=== PATIENT | male | born 1950 | race Two or more races ===

== ENCOUNTER 2021-01-27 16:26 | Emergency (ER) | payer MEDICARE, OTHER ==
[~2021-01-27] VITALS: Ht 180.3 cm; Wt 95.3 kg
[2021-01-27 16:56] VITALS: BP 175/80
[2021-01-27] MEDS ORDERED: IBUPROFEN 800 MG TAB PO ONE (18:00)
== END 2021-01-27 18:26 | disposition home or self-care (01) ==
LOC: ER 16:26
DX: S16.1XXA Strain of muscle, fascia and tendon at neck level, initial encounter (principal); E11.9 Type 2 diabetes mellitus without complications; I10 Essential (primary) hypertension; V49.9XXA Car occupant (driver) (passenger) injured in unspecified traffic accident, initial encounter; Y93.89 Activity, other specified; Y92.89 Other specified places as the place of occurrence of the external cause; Y99.8 Other external cause status
CPT/HCPCS: 70450; 71046; 72125

== ENCOUNTER 2022-08-07 10:08 | Emergency (ER) | payer OTHER ==
[~2022-08-07] VITALS: Ht 177.8 cm; Wt 77.2 kg
[2022-08-07 11:07] LABS: Basophils # (auto) 0 10 ^3/uL (0-0.2); Basophils % (auto) 0.9 % (0.0-2.0); Eosinophils # (auto) 0.1 10 ^3/uL (0-0.8); Eosinophils % (auto) 2.7 % (0.0-7.0); Hematocrit 40.9 % (41.0-53.0); Hemoglobin 13.8 g/dL (13.5-17.5); Lymphocytes # (auto) 0.6 10 ^3/uL (0.4-5.4); Lymphocytes % (auto) 15.9 % (10.0-50.0); Mean Corpuscular Hemoglobin 30.8 pg (28.0-32.0); Mean Corpuscular Hgb Conc. 33.7 g/dL (32.0-36.0); Mean Corpuscular Volume 91.2 fL (80.0-100.0); Monocytes # (auto) 0.2 10 ^3/uL (0-1.3); Monocytes % (auto) 6.2 % (0.0-12.0); Neutrophils # (auto) 2.9 10 ^3/uL (1.6-8.6); Neutrophils % (auto) 74.3 % (37.0-80.0); Nucleated Red Blood Cells % 0.1 %; Red Blood Cells 4.48 10^6/uL (4.5-5.90); Red Cell Distribution Width 12.9 % (11.8-14.3)
[2022-08-07 11:18] LABS: Potassium 3.7 mmol/L (3.5-5.1)
[2022-08-07 12:10] LABS: Albumin 3.8 g/dL (3.4-5.0); BUN/Creatinine Ratio 22.7; Bilirubin, Total 0.6 mg/dL (0.2-1.0); Calcium 8.7 mg/dL (8.5-10.1); Total Protein 7.7 g/dL (6.4-8.2)
[2022-08-07] MEDS ORDERED: InsuLIN REG 1unit/0.01ml Soln (100units/ml) SC ONE (12:30)
[2022-08-07] MEDS ORDERED: cloNIDine HCL 0.1 MG TAB PO ONE (12:30)
[2022-08-07 14:15] VITALS: BP 145/91
== END 2022-08-07 14:19 | disposition home or self-care (01) ==
LOC: ER 10:08
DX: I10 Essential (primary) hypertension (principal); E11.65 Type 2 diabetes mellitus with hyperglycemia
CPT/HCPCS: 36415; 71045; 80053; 82962; 84484; 85025; 93005

== ENCOUNTER 2023-01-16 01:57 | Emergency (ER) | payer OTHER ==
[~2023-01-16] VITALS: Ht 177.8 cm; Wt 75.0 kg
[2023-01-16 10:00] LABS: Urine Bacteria NONE SEEN /hpf (None Seen); Urine Blood 3+ /uL (Negative); Urine Specific Gravity 1.015 (1.001-1.035); Urine WBC 343 /hpf (0 - 3); Urine WBC Clumps PRESENT /hpf (None Seen)
[2023-01-16 10:05] LABS: Urine Hyaline Cast NONE SEEN /lpf (0 - 2)
[2023-01-16] MEDS ORDERED: cefTRIAXone 1GM/50ML D5W 50 ML IV ONE (10:45)
[2023-01-16] MEDS ORDERED: BACDST PO (10:46)
[2023-01-16 11:44] VITALS: BP 150/71
== END 2023-01-16 11:55 | disposition home or self-care (01) ==
LOC: EDBD 01:57 → ER 01:57
DX: T83.038A Leakage of other urinary catheter, initial encounter (principal); N40.0 Benign prostatic hyperplasia without lower urinary tract symptoms; N39.0 Urinary tract infection, site not specified; Z20.822 Contact with and (suspected) exposure to COVID-19
CPT/HCPCS: 36415; 81001; 87426; 96365; 99285; J0696

== ENCOUNTER 2023-01-19 13:29 | Inpatient (IN) | payer OTHER ==
[~2023-01-19] VITALS: Ht 177.8 cm; Wt 70.0 kg
[~2023-01-19 13:29] MED LIST: BACDST PO
[2023-01-19 15:53] LABS: Basophils # (auto) 0 10 ^3/uL (0-0.2); Eosinophils # (auto) 0.1 10 ^3/uL (0-0.8); Lymphocytes # (auto) 0.5 10 ^3/uL (0.4-5.4); Monocytes # (auto) 0.4 10 ^3/uL (0-1.3); Red Cell Distribution Width 13.6 % (11.8-14.3)
[2023-01-19 15:55] LABS: Basophils % (auto) 0.6 % (0.0-2.0); Eosinophils % (auto) 1.7 % (0.0-7.0); Hematocrit 19.5 % (41.0-53.0); Lymphocytes % (auto) 6.4 % (10.0-50.0); Mean Corpuscular Hemoglobin 32.3 pg (28.0-32.0); Mean Corpuscular Hgb Conc. 35.4 g/dL (32.0-36.0); Mean Corpuscular Volume 91.2 fL (80.0-100.0); Monocytes % (auto) 5.3 % (0.0-12.0); Neutrophils # (auto) 6.1 10 ^3/uL (1.6-8.6); Red Blood Cells 2.14 10^6/uL (4.5-5.90); White Blood Cell 7.1 10^3/uL (4.4-10.8)
[2023-01-19 16:02] LABS: Hemoglobin 6.9 g/dL (13.5-17.5)
[2023-01-19 16:11] LABS: Albumin 3.4 g/dL (3.4-5.0); Calcium 8.4 mg/dL (8.5-10.1); Potassium 4.9 mmol/L (3.5-5.1)
[2023-01-19 16:15] LABS: BUN/Creatinine Ratio 16.1; Bilirubin, Total 0.2 mg/dL (0.2-1.0); Total Protein 6.6 g/dL (6.4-8.2)
[2023-01-19 17:56] LABS: INR 0.99 (0.9-1.15)
[2023-01-19] MEDS ORDERED: ONDANSETRON HCL 4 MG/2 ML VIAL IV PRN (21:30)
[2023-01-19] MEDS ORDERED: DEXTROSE (50%) 50ML SYRG IV PRN (21:30)
[2023-01-19] MEDS: ACCU-CHEK COMFORT CURVE STRIP VI SCH (22:27)
[2023-01-19] MEDS: InsuLIN REG 1unit/0.01ml Soln (100units/ml) SC SCH (22:28)
[2023-01-19] MEDS: TEMAZEPAM 15 MG CAP PO PRN (22:29)
[2023-01-19] MEDS: ACETAMINOPHEN 325 MG TAB PO PRN (22:29)
[2023-01-19 22:35] VITALS: BP 116/35
[2023-01-19 22:49] VITALS: BP 120/37
[2023-01-19 23:15] VITALS: BP 119/46
[2023-01-19 23:39] VITALS: BP 121/40
[2023-01-20] VITALS (10 sets, daily range): BP systolic 111–127; BP diastolic 45–64
[2023-01-20] MEDS: ACCU-CHEK COMFORT CURVE STRIP VI SCH ×4 (07:07→22:03)
[2023-01-20] MEDS: InsuLIN REG 1unit/0.01ml Soln (100units/ml) SC SCH ×4 (07:07→22:02)
[2023-01-20] MEDS ORDERED: SOD CHL 0.45% 1,000 ML IV SCH (07:15)
[2023-01-20 09:41] LABS: Basophils # (auto) 0 10 ^3/uL (0-0.2); Basophils % (auto) 0.5 % (0.0-2.0); Eosinophils # (auto) 0.2 10 ^3/uL (0-0.8); Eosinophils % (auto) 3.2 % (0.0-7.0); Hematocrit 28.3 % (41.0-53.0); Hemoglobin 9.9 g/dL (13.5-17.5); Lymphocytes # (auto) 0.7 10 ^3/uL (0.4-5.4); Lymphocytes % (auto) 9.1 % (10.0-50.0); Mean Corpuscular Hemoglobin 31.3 pg (28.0-32.0); Mean Corpuscular Volume 89.5 fL (80.0-100.0); Monocytes # (auto) 0.5 10 ^3/uL (0-1.3); Monocytes % (auto) 7.3 % (0.0-12.0); Neutrophils # (auto) 5.9 10 ^3/uL (1.6-8.6); Neutrophils % (auto) 79.9 % (37.0-80.0); Red Blood Cells 3.16 10^6/uL (4.5-5.90); White Blood Cell 7.4 10^3/uL (4.4-10.8)
[2023-01-20 09:56] LABS: Albumin 3.7 g/dL (3.4-5.0); Calcium 9.1 mg/dL (8.5-10.1); Potassium 4.4 mmol/L (3.5-5.1)
[2023-01-20 10:00] LABS: Bilirubin, Total 0.3 mg/dL (0.2-1.0); Phosphorus 3.9 mg/dL (2.5-4.90); Total Protein 7.8 g/dL (6.4-8.2)
[2023-01-20] MEDS: PANTOPRAZOLE 40 MG TAB PO SCH (11:01)
[2023-01-20] MEDS ORDERED: cefTRIAXone 1GM/50ML D5W 50 ML IV ONE (11:30)
[2023-01-20] MEDS: SODIUM CHLORIDE 0.9% 1,000 ML IV SCH ×2 (11:57→18:10)
[2023-01-20] MEDS: ACETAMINOPHEN 325 MG TAB PO PRN (22:01)
[2023-01-20] MEDS: TEMAZEPAM 15 MG CAP PO PRN (22:01)
[2023-01-21] MEDS: SODIUM CHLORIDE 0.9% 1,000 ML IV SCH ×3 (00:50→14:30)
[2023-01-21] MEDS ORDERED: METF-370 PO (01:24)
[2023-01-21] MEDS ORDERED: GLIP10TA9 PO (01:24)
[2023-01-21] MEDS ORDERED: EMPA1TAB3 PO (01:24)
[2023-01-21] MEDS ORDERED: PRAV20TA3 PO (01:24)
[2023-01-21] MEDS ORDERED: ATEN-60 PO (01:24)
[2023-01-21] MEDS ORDERED: CLON0.1T PO (01:29)
[2023-01-21] MEDS ORDERED: TERA5CAP2 PO (01:29)
[2023-01-21] MEDS ORDERED: HYDR25TA4 PO (01:29)
[2023-01-21] MEDS ORDERED: LOSA-39 PO (01:29)
[2023-01-21] MEDS ORDERED: SENN1TAB14 PO (01:31)
[2023-01-21] MEDS ORDERED: MAGN84TA4 PO (01:31)
[2023-01-21] MEDS ORDERED: MULT-1058 PO (01:31)
[2023-01-21] MEDS ORDERED: ASPI-378 PO (01:31)
[2023-01-21] MEDS ORDERED: CHOL50004 PO (01:33)
[2023-01-21] MEDS ORDERED: MILK1000 PO (01:33)
[2023-01-21] MEDS ORDERED: FINA5TAB4 PO (01:33)
[2023-01-21] MEDS ORDERED: AMLO-489 PO (01:33)
[2023-01-21] MEDS ORDERED: OMEG100078 PO (01:33)
[2023-01-21 04:39] VITALS: BP 131/86
[2023-01-21 06:09] LABS: Basophils # (auto) 0.1 10 ^3/uL (0-0.2); Basophils % (auto) 0.8 % (0.0-2.0); Eosinophils # (auto) 0.4 10 ^3/uL (0-0.8); Eosinophils % (auto) 5.9 % (0.0-7.0); Hematocrit 25.8 % (41.0-53.0); Lymphocytes # (auto) 0.9 10 ^3/uL (0.4-5.4); Lymphocytes % (auto) 13.2 % (10.0-50.0); Mean Corpuscular Hemoglobin 31.4 pg (28.0-32.0); Mean Corpuscular Hgb Conc. 34.9 g/dL (32.0-36.0); Mean Corpuscular Volume 89.9 fL (80.0-100.0); Monocytes # (auto) 0.6 10 ^3/uL (0-1.3); Monocytes % (auto) 8.7 % (0.0-12.0); Neutrophils # (auto) 4.9 10 ^3/uL (1.6-8.6); Neutrophils % (auto) 71.4 % (37.0-80.0); Red Blood Cells 2.87 10^6/uL (4.5-5.90); Red Cell Distribution Width 14.7 % (11.8-14.3); White Blood Cell 6.9 10^3/uL (4.4-10.8)
[2023-01-21] MEDS: ACCU-CHEK COMFORT CURVE STRIP VI SCH ×4 (06:29→21:37)
[2023-01-21] MEDS: InsuLIN REG 1unit/0.01ml Soln (100units/ml) SC SCH ×4 (06:30→21:48)
[2023-01-21 06:34] LABS: BUN/Creatinine Ratio 17.6; Calcium 8.7 mg/dL (8.5-10.1)
[2023-01-21 09:00] VITALS: BP 130/60
[2023-01-21] MEDS: cefTRIAXone 1GM/50ML D5W 50 ML IV SCH (09:00)
[2023-01-21] MEDS: PANTOPRAZOLE 40 MG TAB PO SCH (10:00)
[2023-01-21] MEDS ORDERED: MIDAZOLAM HCL 2MG/2ML 2ml VIAL (1mg/ml) ONE (11:32)
[2023-01-21] MEDS ORDERED: PROPOFOL 10 MG/ML 20 ML IV ONE (11:32)
[2023-01-21] MEDS ORDERED: fentaNYL CITRATE 5 ML ONE (11:32)
[2023-01-21] MEDS ORDERED: ROCURONIUM 10MG/ML 10ML VIAL IV ONE (11:33)
[2023-01-21] MEDS ORDERED: LIDOCAINE 2% (LOCAL ANESTH.) PF 5ml SDV ONE (11:36)
[2023-01-21] MEDS ORDERED: ONDANSETRON HCL 4 MG/2 ML VIAL ONE (11:36)
[2023-01-21] MEDS ORDERED: CIPROFLOXACIN 400MG/200ML 200 ML IV ONE (12:11)
[2023-01-21] MEDS ORDERED: GENTAMICIN SULF 80 MG/2 ML VIAL ONE (12:11)
[2023-01-21] MEDS ORDERED: ePHEDrine SULFATE 50 MG/ML AMP ONE (12:28)
[2023-01-21] MEDS ORDERED: GLYCOPYRROLATE 0.2 MG/ML 1ML VIAL ONE (13:50)
[2023-01-21] MEDS ORDERED: NEOSTIGMINE 1 MG/ML INJ (10mg/10ML VIAL) ONE (13:51)
[2023-01-21] MEDS ORDERED: HYDROcodone-ACET 5/325MG TAB PO PRN (16:15)
[2023-01-21 16:24] VITALS: BP 138/87
[2023-01-21 16:26] VITALS: BP 148/97
[2023-01-21] MEDS ORDERED: PHENAZOPYRIDINE HCL 100 MG TAB PO SCH (18:00)
[2023-01-21] MEDS: TEMAZEPAM 15 MG CAP PO PRN (21:27)
[2023-01-21] MEDS: ACETAMINOPHEN 325 MG TAB PO PRN (21:28)
[2023-01-21 22:00] VITALS: BP_SYST 116; BP_SYST 130; BP_DIAS 62; BP_DIAS 80
[2023-01-22] MEDS: SODIUM CHLORIDE 0.9% 1,000 ML IV SCH ×3 (00:30→21:51)
[2023-01-22 05:00] VITALS: BP 109/59
[2023-01-22] MEDS: ACCU-CHEK COMFORT CURVE STRIP VI SCH ×4 (06:19→22:01)
[2023-01-22] MEDS: InsuLIN REG 1unit/0.01ml Soln (100units/ml) SC SCH ×4 (06:20→22:03)
[2023-01-22 06:27] LABS: Basophils # (auto) 0 10 ^3/uL (0-0.2); Lymphocytes # (auto) 0.3 10 ^3/uL (0.4-5.4); Lymphocytes % (auto) 5.2 % (10.0-50.0); Monocytes # (auto) 0.3 10 ^3/uL (0-1.3); Neutrophils # (auto) 5.4 10 ^3/uL (1.6-8.6)
[2023-01-22 06:29] LABS: Basophils % (auto) 0.5 % (0.0-2.0); Eosinophils # (auto) 0.3 10 ^3/uL (0-0.8); Eosinophils % (auto) 5.3 % (0.0-7.0); Hematocrit 24.5 % (41.0-53.0); Hemoglobin 8.5 g/dL (13.5-17.5); Mean Corpuscular Hemoglobin 31.5 pg (28.0-32.0); Mean Corpuscular Hgb Conc. 34.7 g/dL (32.0-36.0); Mean Corpuscular Volume 90.8 fL (80.0-100.0); Monocytes % (auto) 4.1 % (0.0-12.0); Neutrophils % (auto) 84.9 % (37.0-80.0); Red Cell Distribution Width 14.6 % (11.8-14.3); White Blood Cell 6.4 10^3/uL (4.4-10.8)
[2023-01-22 07:03] LABS: BUN/Creatinine Ratio 15.6; Potassium 4.6 mmol/L (3.5-5.1)
[2023-01-22 07:04] LABS: Calcium 8.1 mg/dL (8.5-10.1)
[2023-01-22 08:10] VITALS: BP 120/62
[2023-01-22 08:51] VITALS: BP 120/62
[2023-01-22] MEDS: cefTRIAXone 1GM/50ML D5W 50 ML IV SCH (08:52)
[2023-01-22] MEDS: PANTOPRAZOLE 40 MG TAB PO SCH (10:04)
[2023-01-22 13:00] VITALS: BP 121/61
[2023-01-22] MEDS: ACETAMINOPHEN 325 MG TAB PO PRN ×2 (15:12→22:05)
[2023-01-22 16:22] VITALS: BP 122/65
[2023-01-22 22:00] VITALS: BP 130/62
[2023-01-22] MEDS: TEMAZEPAM 15 MG CAP PO PRN (22:05)
[2023-01-23 05:00] VITALS: BP 120/55
[2023-01-23 06:20] LABS: Basophils # (auto) 0 10 ^3/uL (0-0.2); Eosinophils # (auto) 0.4 10 ^3/uL (0-0.8); Hemoglobin 7.7 g/dL (13.5-17.5); Lymphocytes # (auto) 0.6 10 ^3/uL (0.4-5.4); Monocytes # (auto) 0.4 10 ^3/uL (0-1.3); Neutrophils # (auto) 4.5 10 ^3/uL (1.6-8.6)
[2023-01-23 06:23] LABS: Basophils % (auto) 0.4 % (0.0-2.0); Eosinophils % (auto) 6.6 % (0.0-7.0); Hematocrit 22.1 % (41.0-53.0); Lymphocytes % (auto) 10.5 % (10.0-50.0); Mean Corpuscular Hemoglobin 31.6 pg (28.0-32.0); Mean Corpuscular Hgb Conc. 34.8 g/dL (32.0-36.0); Mean Corpuscular Volume 90.9 fL (80.0-100.0); Neutrophils % (auto) 75.5 % (37.0-80.0); Red Blood Cells 2.43 10^6/uL (4.5-5.90); Red Cell Distribution Width 14.5 % (11.8-14.3)
[2023-01-23 06:36] LABS: Potassium 3.9 mmol/L (3.5-5.1)
[2023-01-23] MEDS: ACCU-CHEK COMFORT CURVE STRIP VI SCH ×4 (06:39→23:11)
[2023-01-23] MEDS: SODIUM CHLORIDE 0.9% 1,000 ML IV SCH ×2 (06:39→08:58)
[2023-01-23] MEDS: InsuLIN REG 1unit/0.01ml Soln (100units/ml) SC SCH ×4 (06:40→23:13)
[2023-01-23 06:44] LABS: BUN/Creatinine Ratio 17.3; Calcium 8.1 mg/dL (8.5-10.1)
[2023-01-23 08:21] VITALS: BP 143/65
[2023-01-23] MEDS: cefTRIAXone 1GM/50ML D5W 50 ML IV SCH (08:58)
[2023-01-23 09:00] VITALS: BP 143/65
[2023-01-23] MEDS: PANTOPRAZOLE 40 MG TAB PO SCH (10:25)
[2023-01-23] MEDS ORDERED: DOCUSATE SOD 100 MG CAP PO ONE (10:45)
[2023-01-23] MEDS: LACTULOSE 20Gm/30ML SOLN PO ONE ×2 (11:09→13:29)
[2023-01-23 13:00] VITALS: BP 148/68
[2023-01-23 16:58] VITALS: BP 160/69
[2023-01-23] MEDS ORDERED: FLEET ENEMA(ADULT) 135 ML PR ONE (19:15)
[2023-01-23 22:00] VITALS: BP 136/70
[2023-01-23] MEDS: TEMAZEPAM 15 MG CAP PO PRN (23:12)
[2023-01-23] MEDS: DOCUSATE SOD 100 MG CAP PO SCH (23:12)
[2023-01-23] MEDS: ACETAMINOPHEN 325 MG TAB PO PRN (23:12)
[2023-01-24] MEDS: SODIUM CHLORIDE 0.9% 1,000 ML IV SCH (02:30)
[2023-01-24 05:00] VITALS: BP 131/59
[2023-01-24] MEDS: ACCU-CHEK COMFORT CURVE STRIP VI SCH ×4 (06:29→22:55)
[2023-01-24] MEDS: InsuLIN REG 1unit/0.01ml Soln (100units/ml) SC SCH ×4 (06:31→22:59)
[2023-01-24 09:00] VITALS: BP 146/74
[2023-01-24] MEDS ORDERED: LACTULOSE 20Gm/30ML SOLN PO PRN (10:00)
[2023-01-24] MEDS: PANTOPRAZOLE 40 MG TAB PO SCH (11:30)
[2023-01-24] MEDS: DOCUSATE SOD 100 MG CAP PO SCH ×2 (11:31→21:06)
[2023-01-24] MEDS: cefTRIAXone 1GM/50ML D5W 50 ML IV SCH (12:05)
[2023-01-24 13:00] VITALS: BP 185/80
[2023-01-24] MEDS ORDERED: FLEET ENEMA(ADULT) 135 ML PR ONE (13:45)
[2023-01-24 17:00] VITALS: BP 156/75
[2023-01-24] MEDS: TEMAZEPAM 15 MG CAP PO PRN (21:06)
[2023-01-24] MEDS: ACETAMINOPHEN 325 MG TAB PO PRN (21:06)
[2023-01-24 22:00] VITALS: BP 112/69
[2023-01-25 05:00] VITALS: BP_SYST 114; BP_SYST 139; BP_DIAS 55; BP_DIAS 81
[2023-01-25] MEDS: ACCU-CHEK COMFORT CURVE STRIP VI SCH (06:12)
[2023-01-25] MEDS: InsuLIN REG 1unit/0.01ml Soln (100units/ml) SC SCH (06:17)
[2023-01-25 06:19] LABS: BUN/Creatinine Ratio 17.8; Calcium 8.5 mg/dL (8.5-10.1); Potassium 4.1 mmol/L (3.5-5.1)
[2023-01-25 06:22] LABS: Basophils # (auto) 0 10 ^3/uL (0-0.2); Basophils % (auto) 0.4 % (0.0-2.0); Eosinophils # (auto) 0.5 10 ^3/uL (0-0.8); Eosinophils % (auto) 9.1 % (0.0-7.0); Hematocrit 24.3 % (41.0-53.0); Hemoglobin 8.6 g/dL (13.5-17.5); Lymphocytes # (auto) 0.7 10 ^3/uL (0.4-5.4); Lymphocytes % (auto) 13.5 % (10.0-50.0); Mean Corpuscular Hemoglobin 31.8 pg (28.0-32.0); Mean Corpuscular Hgb Conc. 35.5 g/dL (32.0-36.0); Mean Corpuscular Volume 89.3 fL (80.0-100.0); Monocytes # (auto) 0.5 10 ^3/uL (0-1.3); Monocytes % (auto) 8.8 % (0.0-12.0); Neutrophils # (auto) 3.7 10 ^3/uL (1.6-8.6); Neutrophils % (auto) 68.2 % (37.0-80.0); Nucleated Red Blood Cells % 0.1 %; Red Blood Cells 2.72 10^6/uL (4.5-5.90); Red Cell Distribution Width 14.1 % (11.8-14.3); White Blood Cell 5.4 10^3/uL (4.4-10.8)
[2023-01-25 09:00] VITALS: BP 107/61
[2023-01-25] MEDS: cefTRIAXone 1GM/50ML D5W 50 ML IV SCH (09:00)
[2023-01-25] MEDS: PANTOPRAZOLE 40 MG TAB PO SCH (10:00)
[2023-01-25] MEDS: DOCUSATE SOD 100 MG CAP PO SCH (10:00)
[2023-01-26] MEDS ORDERED: MECL1TAB42 PO (14:16)
== END 2023-01-25 11:54 | disposition home or self-care (01) | DRG 666 ==
LOC: ER 13:29 → OVERFLOW 21:24 → WEST WING 01-20 22:31
PROVIDERS: ADMIT Nurse Practitioner; ATTEND Internal Medicine Geriatric Medicine
PROC: 30233N1 Transfusion of Nonautologous Red Blood Cells into Peripheral Vein, Percutaneous Approach (ICD-10-PCS; 2023-01-19)
PROC: 0TCC8ZZ Extirpation of Matter from Bladder Neck, Via Natural or Artificial Opening Endoscopic (ICD-10-PCS; 2023-01-21)
PROC: 0VT08ZZ Resection of Prostate, Via Natural or Artificial Opening Endoscopic (ICD-10-PCS; principal; 2023-01-21 11:33)
PROC: 0TCB8ZZ Extirpation of Matter from Bladder, Via Natural or Artificial Opening Endoscopic (ICD-10-PCS; 2023-01-21 11:33)
DX: T83.9XXA Unspecified complication of genitourinary prosthetic device, implant and graft, initial encounter (principal); N13.8 Other obstructive and reflux uropathy; N17.9 Acute kidney failure, unspecified; D64.9 Anemia, unspecified; E11.65 Type 2 diabetes mellitus with hyperglycemia; N40.1 Benign prostatic hyperplasia with lower urinary tract symptoms; I95.9 Hypotension, unspecified; N18.31 Chronic kidney disease, stage 3a; I12.9 Hypertensive chronic kidney disease with stage 1 through stage 4 chronic kidney disease, or unspecified chronic kidney disease; Z20.822 Contact with and (suspected) exposure to COVID-19; E11.22 Type 2 diabetes mellitus with diabetic chronic kidney disease; K59.00 Constipation, unspecified; Y83.9 Surgical procedure, unspecified as the cause of abnormal reaction of the patient, or of later complication, without mention of misadventure at the time of the procedure; Y92.89 Other specified places as the place of occurrence of the external cause
CPT/HCPCS: 36415; 71045; 76775; 80048; 80053; 82962; 84100; 84154; 84484; 85025; 85610; 86850; 86900; 86901; 86920; 87426; 87804; 93005; 99291; G0378; J0696; J1815; J2001; J2250; J2405; J2704

== ENCOUNTER 2023-01-26 13:39 | Inpatient (IN) | payer OTHER ==
[~2023-01-26] VITALS: Ht 177.8 cm; Wt 69.0 kg
[~2023-01-26 13:39] MED LIST changes: +AMLO-489 PO; +ATEN-60 PO; -BACDST PO; +CHOL50004 PO; +CLON0.1T PO; +EMPA1TAB3 PO; +FINA5TAB4 PO; +GLIP10TA9 PO; +HYDR25TA4 PO; +LOSA-39 PO; +MAGN84TA4 PO; +METF-370 PO; +MILK1000 PO; +MULT-1058 PO; +OMEG100078 PO; +PRAV20TA3 PO; +SENN1TAB14 PO; +TERA5CAP2 PO
[2023-01-26 14:08] LABS: Basophils # (auto) 0 10 ^3/uL (0-0.2); Basophils % (auto) 0.8 % (0.0-2.0); Eosinophils # (auto) 0.3 10 ^3/uL (0-0.8); Eosinophils % (auto) 6.4 % (0.0-7.0); Hematocrit 25.4 % (41.0-53.0); Hemoglobin 8.8 g/dL (13.5-17.5); Lymphocytes # (auto) 0.4 10 ^3/uL (0.4-5.4); Lymphocytes % (auto) 7.9 % (10.0-50.0); Mean Corpuscular Hemoglobin 31.3 pg (28.0-32.0); Mean Corpuscular Hgb Conc. 34.6 g/dL (32.0-36.0); Mean Corpuscular Volume 90.6 fL (80.0-100.0); Monocytes # (auto) 0.3 10 ^3/uL (0-1.3); Monocytes % (auto) 6.2 % (0.0-12.0); Neutrophils # (auto) 4.2 10 ^3/uL (1.6-8.6); Neutrophils % (auto) 78.7 % (37.0-80.0); Red Blood Cells 2.81 10^6/uL (4.5-5.90); Red Cell Distribution Width 14.1 % (11.8-14.3); White Blood Cell 5.3 10^3/uL (4.4-10.8)
[2023-01-26] MEDS ORDERED: MECL1TAB42 PO (14:16)
[2023-01-26 14:24] LABS: Albumin 3.3 g/dL (3.4-5.0); Calcium 8.2 mg/dL (8.5-10.1); Potassium 4.2 mmol/L (3.5-5.1)
[2023-01-26 14:28] LABS: BUN/Creatinine Ratio 17.5; Bilirubin, Total 0.2 mg/dL (0.2-1.0); Total Protein 6.8 g/dL (6.4-8.2)
[2023-01-26] MEDS ORDERED: SODIUM CHLORIDE 0.9% 1,000 ML IV ONE (18:15)
[2023-01-26] MEDS ORDERED: ALBUMIN 25% 50 ML IV ONE (18:15)
[2023-01-26] MEDS ORDERED: DEXTROSE (50%) 50ML SYRG IV PRN (18:15)
[2023-01-26 20:29] LABS: Urine Bacteria FEW /hpf (None Seen); Urine Blood 3+ /uL (Negative); Urine Hyaline Cast MOD /lpf (0 - 2); Urine Mucus FEW (None Seen); Urine Specific Gravity 1.015 (1.001-1.035); Urine WBC 13 /hpf (0 - 3)
[2023-01-27] MEDS: ACCU-CHEK COMFORT CURVE STRIP VI SCH ×3 (00:26→11:30)
[2023-01-27] MEDS: InsuLIN REG 1unit/0.01ml Soln (100units/ml) SC SCH ×3 (01:21→12:02)
[2023-01-27] MEDS ORDERED: ACETAMINOPHEN 325 MG TAB PO PRN (03:15)
[2023-01-27 11:38] VITALS: BP 149/49
== END 2023-01-27 11:20 | disposition home or self-care (01) | DRG 683 ==
LOC: ER 13:39 → TELE 18:07
PROVIDERS: ADMIT Registered Nurse; ATTEND Internal Medicine Geriatric Medicine
DX: N17.9 Acute kidney failure, unspecified (principal); E44.1 Mild protein-calorie malnutrition; I95.9 Hypotension, unspecified; Z20.822 Contact with and (suspected) exposure to COVID-19; D64.9 Anemia, unspecified; E11.22 Type 2 diabetes mellitus with diabetic chronic kidney disease; E11.65 Type 2 diabetes mellitus with hyperglycemia; C61 Malignant neoplasm of prostate; I12.9 Hypertensive chronic kidney disease with stage 1 through stage 4 chronic kidney disease, or unspecified chronic kidney disease; N18.32 Chronic kidney disease, stage 3b; Z90.79 Acquired absence of other genital organ(s); Z68.21 Body mass index [BMI] 21.0-21.9, adult; E86.0 Dehydration; Z79.84 Long term (current) use of oral hypoglycemic drugs
CPT/HCPCS: 36415; 70450; 80053; 81001; 82962; 84484; 85025; 87426; 93005; G0378; J1815